=== PATIENT | male | born 1985 | race African-American/Black ===

== ENCOUNTER 2024-06-14 17:59 | Emergency (ER) | payer OTHER, SELFPAY ==
--- NOTE | ~2024-06-14 | CT_ITS ---
EXAMINATION: CT abdomen pelvis w con DATE: 06/14/2024 19:45 INDICATION: Abdominal pain TECHNIQUE: Computed tomography (CT) of the abdomen and pelvis was performed with 100 CC Omnipaque 350 intravenous contrast. Automated exposure control and iterative reconstruction technique were employe d. Exam dose: 628.66 mGy-cm total exam DLP. COMPARISON: None. FINDINGS: The lung bases are clear. Normal heart size. No pericardial or pleural effusion. The gallbladder is contracted. No pericholecystic fluid or gallbladder wall thickening. The liver, spleen, pancreas, and adrenal glands and kidneys are unremarkable except for a small nonob structing lower pole right renal calculus. No ureteral calculus or hydroureteronephrosis. There is mild fat stranding adjacent to the gallbladder fundus and hepatic flexure of the colon with suggestion of colonic diverticula. Mild uncomplicated diverticulitis is suggested at the hepatic flex ure. Differential diagnosis includes epiploic appendagitis or less likely acute cholecystitis. Normal appendix. No bowel obstruction, bowel wall thickening, pneumatosis or intraperitoneal free air is detected. Normal caliber of the abdominal aorta. No intraperitoneal or retroperitoneal or pelvic mass lesion or adenopathy or ascites. Prostate calcifications, mild prostate enlargement. The urinary bladder is unremarkable. Very small fat-containing umbilical hernia. Prominent anterior spurring at the upper aspect of the sacroiliac joints. No suspicious osteolytic or osteoblastic lesions. IMPRESSION: Mild focal inflammatory change in the right upper quadrant adjacent to the hepatic flexu re of the colon where there appears to be minimal diverticulosis. Consider mild uncomplicated colonic diverticulitis. Differential diagnosis includes epiploic appendagitis, less likely cholecystitis. Co nsider gallbladder ultrasound correlation. Nonobstructing small lower pole right renal calculus Normal appendix Reviewed, dictated and finalized at [facility] Reviewed, dictated and finalized at [facility] E QUALITY IMPRESSION: Mild focal inflammatory change in the right upper quadrant adjacen t to the hepatic flexure of the colon where there appears to be minimal diverti culosis. Consider mild uncomplicated colonic diverticulitis. Differential diagn osis includes epiploic appendagitis, less likely cholecystitis. Consider gallbl adder ultrasound correlation. Nonobstructing small lower pole right renal calculus Normal appendix
[2024-06-14 18:23] VITALS: BP 130/79; PULSE 79; RESP 15; O2SAT 100
[2024-06-14 18:30] LABS: Basophils Percent Auto 0.8 % (0.2-1.2); Eosinophils Percent Auto 0.4 % (0-4.4); Hematocrit 43.4 % (42.0-52.0); Hemoglobin 14.8 g/dL (14.0-18.0); Immature Granulocyte Absolute 0.01 K/mm3 (0.00-0.031); Immature Granulocyte Percent A 0.2 % (0-0.5); Lymphocytes Absolute Auto 2.04 K/mm3 (0.9-3.2); Lymphocytes Percent Auto 40.2 % (18.3-44.2); Mean Corpuscular HGB Conc 34.1 g/dl (32-36); Mean Corpuscular Hemoglobin 30.6 pg (26-34); Mean Corpuscular Volume 89.7 fl (80-100); Mean Platelet Volume 9.3 fl (7.4-10.4); Monocytes Absolute Auto 0.5 K/mm3 (0.1-0.6); Monocytes Percent Auto 8.9 % (2.6-8.5); Neutrophils Absolute Auto 2.5 K/mm3 (1.3-6.7); Neutrophils Percent Auto 49.5 % (45.5-73.1); Platelet Count Result 209 k/mm3 (150-375); Red Blood Count 4.84 M/mm3 (4.6-6.20); Red Cell Distribution Width 12.6 % (11.5-14.5); White Blood Count 5.1 K/mm3 (4.5-10.0)
[2024-06-14 18:32] LABS: Add Urine Microscopic? NO; Appearance Urine Clear (Clear); Bilirubin Urine Negative (Negative); Blood Urine Negative (Negative); Color Urine Yellow (Yellow); Glucose Urine UA Negative (Negative); Ketones Urine Negative (Negative); Leukocyte Esterase Ur Negative LEU/UL (Negative); Nitrate Urine Negative (Negative); Protein Urine Negative (Negative); Specific Grav Ur 1.023 (1.001-1.035)
[2024-06-14 18:38] LABS: Alanine Aminotransferase 18 U/L (6-50); Albumin Level 4.5 g/dL (3.5-5.1); Alkaline Phosphatase 50 U/L (38-126); Anion Gap 3 mmol/L (4-12); Aspartate Amino Transferase 38 U/L (17-59); Bilirubin,Total 1.9 mg/dL (0.2-1.3); Blood Urea Nitrogen 14 mg/dL (9-20); Calcium 9.1 mg/dL (8.4-10.2); Carbon Dioxide 33 mmol/L (22-30); Chloride 103 mmol/L (98-107); Estimated Glomerular Filt Rate > 60; Glucose 83 mg/dL (65-110); Lipase 43 U/L (23-300); Potassium 3.9 mmol/L (3.4-5.0); Sodium 139 mmol/L (137-145)
[2024-06-14 18:58] VITALS: BP 135/87; PULSE 73; RESP 19; O2SAT 100
--- NOTE | 2024-06-14 19:23 | ED_ITS ---
HPI - Abdominal Pain General Chief Complaint: Abdominal Pain Stated Complaint: dull uncomfort abd pain Time Seen by Provider: 06/14/24 18:09 Source: patient Mode of arrival: ambulatory Limitations: no limitations History of Present Illness HPI narrative: This is a 39-year-old male that presents to the emergency department for left- sided abdominal pain. Ongoing over the last couple of weeks. Reports he feels like he can feel a knot in the area. Denies fevers, vomiting, dysuria, hematuria. Related Data Allergies Allergy/AdvReac Type Severity Reaction Status Date / Time No Known Allergies Allergy Verified 06/14/24 18:24 Review of Systems 2 Review of Systems: CONSTITUTIONAL: Denies fever GASTROINTESTINAL: Reports abdominal pain. Denies nausea, vomiting, or diarrhea. GENITOURINARY: Denies dysuria or hematuria. All systems reviewed & are unremarkable except as noted in HPI and below PMFSH Social History Social History (Updated 06/14/24 @ 19:26 by Carla Brito PA-C) Substance use: never Exam 2 Narrative: GENERAL: Well-appearing, well-nourished, and in no acute distress. HEAD: Normocephalic, atraumatic. EYES: EOMI. CHEST: Clear to auscultation. No respiratory distress. No wheezes rales or rhonchi HEART: Regular rate and rhythm. No murmur heard. Normal peripheral pulses. ABDOMEN: Soft, nondistended, normal active bowel sounds. Mild tenderness to palpation throughout the left side of the abdomen, without guarding EXTREMITIES: Normal range of motion. No edema. SKIN: Warm, dry, no rash. NEURO: No focal deficits. Alert and oriented x3. PSYCH: Normal mood and affect Course Course Emergency Course: Patient updated on his workup and agrees with plan of care Vital Signs Vital signs: Vital Signs Pulse Rate 79 06/14/24 18:23 Respiratory Rate 15 06/14/24 18:23 Blood Pressure 130/79 06/14/24 18:23 Pulse Oximetry 100 06/14/24 18:23 Temperature 98.5 F 06/14/24 19:26 Pulse Rate 73 06/14/24 19:26 Respiratory Rate 14 06/14/24 19:26 Blood Pressure 138/88 06/14/24 19:26 Pulse Oximetry 100 06/14/24 19:26 MDM - Abdominal Pain MDM Narrative Medical decision making narrative: patient presents the emergency department for left-sided mid abdominal pain. He is afebrile and nontoxic appearing. His vitals are stable. Cbc without leukocytosis. Metabolic panel shows mild hyperbilirubinemia. Lipase is normal. Urine without evidence of infection. CT abdomen pelvis shows mild focal inflammatory change in the right upper quadrant adjacent to some diverticula. This is not totally correlate to the patient's area of pain. Counseled patient a clear liquid diet. I did send antibiotics to the pharmacy for any worsening pain/symptoms. Patient updated on his workup and agrees with plan of care. He is to have follow-up with primary provider. He was given warnings to return to the ER Differential Diagnosis Differential diagnosis: Likely calculus of kidney, constipation and diverticulitis Lab Data Attestation: I reviewed the patient's lab results. 06/14/24 18:19 06/14/24 18:19 Labs: Lab Results 06/14/24 Range/Units 18:19 WBC 5.1 (4.5-10.0) K/mm3 RBC 4.84 (4.6-6.20) M/mm3 Hgb 14.8 (14.0-18.0) g/dL Hct 43.4 (42.0-52.0) % MCV 89.7 (80-100) fl MCH 30.6 (26-34) pg MCHC 34.1 (32-36) g/dl RDW 12.6 (11.5-14.5) % Plt Count 209 (150-375) k/mm3 MPV 9.3 (7.4-10.4) fl Immature Gran % (Auto) 0.2 (0-0.5) % Neut % (Auto) 49.5 (45.5-73.1) % Lymph % (Auto) 40.2 (18.3-44.2) % [place] % (Auto) 8.9 H (2.6-8.5) % Eos % (Auto) 0.4 (0-4.4) % Baso % (Auto) 0.8 (0.2-1.2) % Lymph # (Auto) 2.04 (0.9-3.2) K/mm3 [place] # (Auto) 0.5 (0.1-0.6) K/mm3 Eos # (Auto) 0.0 (0-0.3) K/mm3 Baso # (Auto) 0.0 (0.0-0.1) K/mm3 Abs Immat Gran (auto) 0.01 (0.00-0.031) K/mm3 Absolute Neuts (auto) 2.5 (1.3-6.7) K/mm3 Absolute Nucleated RBC 0.000 (0.0-0.012) K/mm3 Nucleated RBC % 0.0 (0.0-0.2) % Sodium 139 (137-145) mmol/L Potassium 3.9 (3.4-5.0) mmol/L Chloride 103 (98-107) mmol/L Carbon Dioxide 33 H (22-30) mmol/L Anion Gap 3 L (4-12) mmol/L BUN 14 (9-20) mg/dL Creatinine 1.00 (0.7-1.3) mg/dL Estim Creat Clear Calc Not Reportable Estimated GFR > 60 (59 - ) Glucose 83 (65-110) mg/dL Calcium 9.1 (8.4-10.2) mg/dL Total Bilirubin 1.9 H (0.2-1.3) mg/dL AST 38 (17-59) U/L ALT 18 (6-50) U/L Alkaline Phosphatase 50 (38-126) U/L Total Protein 8.0 (6.3-8.2) g/dL Albumin 4.5 (3.5-5.1) g/dL Lipase 43 (23-300) U/L Urine Color Yellow (Yellow) Urine Appearance Clear (Clear) Urine pH 6.0 (5.0-9.0) Ur Specific [place] 1.023 (1.001-1.035) Urine Protein Negative (Negative) mg/dL Urine Glucose (UA) Negative (Negative) mg/dL Urine Ketones Negative (Negative) mg/dL Ur Blood (Man) Negative (Negative) Urine Nitrate Negative (Negative) Urine Bilirubin Negative (Negative) Urine Urobilinogen 1.0 (<2.0) mg/dL Leukocyte Esterase Rfl Negative (Negative) JOHN/UL Imaging Data Radiologist's impression: ITS Impressions Abdomen/Pelvis CT 06/14/24 19:46 IMPRESSION: Mild focal inflammatory change in the right upper quadrant adjacent to the hepatic flexure of the colon where there appears to be minimal diverticulosis. Consider mild uncomplicated colonic diverticulitis. Differential diagnosis includes epiploic appendagitis, less likely cholecystitis. Consider gallbladder ultrasound correlation. Nonobstructing small lower pole right renal calculus Normal appendix Critical Care Time Critical Care Time Critical Care Time: No Discharge Plan Discharge Clinical Impression: Abdominal pain Qualifiers: Abdominal location: left upper quadrant Qualified Code(s): R10.12 - Left upper quadrant pain Patient Disposition: Home, Self-Care Condition: Stable Instructions: Antibiotic Form, Diverticulitis (ED), Clear Liquid Diet (ED), Abdominal Pain (ED) Additional Instructions: Return to the ER if you experience fever, abdominal pain with nausea and vomiting, you are unable to keep down liquids or solids, blood in the stool, or any other symptoms that are concerning to you The radiologist saw possible diverticulitis. Although this doesn't correlate with the area of your pain, unsure if this is an incidental/ not significant finding Liquid diet the next couple of days to see if this helps your pain. Over the counter pain medication as needed. Take oral antibiotic for any worsening symptoms/abdominal pain Follow up with your primary care doctor Patient Language: Serbian Prescriptions: New amoxicillin-pot clavulanate 875-125 mg tablet 1 tablet PO Q12H 10 Days Qty: 20 0RF Follow-up/Referrals: PHYSICIAN NOT ON STAFF,NONSTAFF [Primary Care Provider] -
[2024-06-14 19:26] VITALS: BP 138/88; PULSE 73; RESP 14; TEMP 36.9; O2SAT 100
[2024-06-14 20:40] VITALS: BP 145/90; PULSE 64; RESP 18; O2SAT 100
== END 2024-06-14 20:41 | disposition home or self-care (01) ==
PROVIDERS: Student in an Organized Health Care Education/Training Program; Emergency Provider Physician Assistant
DX: R10.12 Left upper quadrant pain (principal)
CPT/HCPCS: 36415; 74177; 80053; 81003; 83690; 85025; 99284; Q9967

== ENCOUNTER 2025-02-26 22:51 | Emergency (ER) | payer OTHER, SELFPAY ==
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
--- NOTE | ~2025-02-26 | XR_ITS ---
EXAMINATION: XR chest 2V DATE: 02/27/2025 00:15 INDICATION: Right chest pain TECHNIQUE: PA and lateral views of the chest were obtained. COMPARISON: None FINDINGS: The lungs are clear with no focal airspace opacities, pulmonary edema, pleural effusion or pneumothorax. The cardiomediastinal silhouette is normal. Visualized bones and soft tissues are unremarkable. IMPRESSION: 1. Normal chest radiograph. Reviewed, dictated and finalized at location A. IMPRESSION: 1. Normal chest radiograph.
--- OUTSIDE RECORDS SUMMARY | 2025-02-26 22:53 | XMS_ITS | Clinical Summary ---
Author Organization [facility] Address [facility] [place] [address] Care Team Providers Care Sheet Rock Taper Helper Name Role Phone No, Physician Primary Care Provider [phone] Allergies No known active allergies Medications tamsulosin (FLOMAX) 0.4 mg extended release capsuleIndicati ons:Urolithiasi s Take 1 capsule (0.4 mg total) by mouth daily for 10 days 10 capsule 03/01/2020 Active ibuprofen (ADVIL,MOTRIN) 800 mg tabletIndicatio ns:Anti-inflamm atory,Pain Take 1 tablet (800 mg total) by mouth 3 (three) times a day 21 tablet 07/09/2021 Active acetaminophen (TYLENOL) 500 mg tablet Take 1-2 tablets (500-1,000 mg total) by mouth every 6 (six) hours as needed for pain 30 tablet 07/09/2021 Active Active Problems Problem Noted Date Diagnosed Date Shoulder dislocation, left, initial encounter Acute epididymitis 04/17/2019 Medical History Medical History Date Comments Depression Family History Medical History Relation Name Comments Cancer Father Cancer Mother Relation Name Status Comments Father Mother Social History Tobacco Use Types Packs/Day Years Used Date Smoking Tobacco: Never Smokeless Tobacco: Never Alcohol Use Standard Drinks/Week Comments Yes 0 (1 standard drink = 0.6 oz pur e alcohol) socailly Personal Safety Answer Date Recorded Getting School Help Needed Not on file 08/14 Sex and Gender Information Value Date Recorded Sex Assigned at Not on file Legal Sex Male 10:[address] Gender Identity Not on file Sexual Orientation Not on file 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 Not on file Not on file Not on file Obstetrics History Last Filed Vital Signs Vital Sign Reading Time Taken Comments Blood Pressure 148/94 07/09/2021 6:[address] Pulse 67 07/09/2021 6:[address] Temperature 36.3 C (97.4 F) 07/09/2021 4:[address] Respiratory Rate 18 07/09/2021 6:[address] Oxygen Saturation 99% 07/09/2021 6:[address] Inhaled Oxygen Concentration - - Weight 103.9 kg (229 lb) 07/18/2021 3:[address] Height 185.4 cm (6' 1) 07/18/2021 3:[address] Body Mass Index 30.21 07/18/2021 3:[address] Plan of Treatment Not on file Insurance [employer] OOS [employer] OOS Care Teams Sheet Rock Taper Helper Relationship Specialty Start Date End Date No, Physician PCP - General 12/02/16
--- OUTSIDE RECORDS SUMMARY | 2025-02-26 22:53 | XMS_ITS | Clinical Summary ---
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 INSPECTOR Gender Identity Not on file Sexual Orientation Not on file Last Filed Vital Signs Vital Sign Reading Time Taken Comments Blood Pressure 130/77 08/26/2021 3:23 PM [employer]BESTOS CLOTH INSPECTOR Pulse 76 08/26/2021 3:23 PM [employer]BESTOS CLOTH INSPECTOR Temperature 35.8 C (96.5 F) 08/26/2021 3:23 PM [employer]BESTOS CLOTH INSPECTOR Respiratory Rate 17 08/26/2021 3:23 PM ASBESTOS CLOTH INSPECTOR Oxygen Saturation 98% 08/26/2021 3:23 PM ASBESTOS CLOTH INSPECTOR Inhaled Oxygen Concentration - - Weight 99.8 kg (220 lb) 08/26/2021 3:23 PM [employer]BESTOS CLOTH INSPECTOR Height 185.4 cm (6' 1) 08/26/2021 3:23 PM ASBESTOS CLOTH INSPECTOR Body Mass Index 29.03 08/26/2021 3:23 PM ASBESTOS CLOTH INSPECTOR Plan of Treatment Health Maintenance Due Date Last Done Comments DTAP/TDAP/TD VACCINES (1 - Tdap) 2004 HEPATITIS B VACCINES (1 of 3 - 19+ 3-dose series) 04/24 HPV VACCINES (1 - 3-dose SCDM series) 2012 INFLUENZA VACCINE (#1) 2025 Insurance OUT OF STATE Care Teams Road Gang Supervisor Relationship Specialty Start Date End Date Cristel Blanco DO [address] [facility] [address] [place] [address] PCP - General 08/26/21
--- OUTSIDE RECORDS SUMMARY | 2025-02-26 22:53 | XMS_ITS | Clinical Summary ---
Author Organization [facility] [employer] Address [address] [place] [address] Care Team Providers Care Electrocardiograph Technician Name Role Phone Unavailable Primary Care Provider Unavailabl e Source Comments [facility],non-owned Affiliates and Associated Physician Practices is amultiple site organization consisting of ambulatory clinics and hospital sitesin [place], [place] and [place]. This disclosure is being madepursuant to the Care Everywhere program and may not contain all information available regarding this patient. Last updated 18.[facility] [employer] Allergies No known active allergies Immunizations Immunization Administration Dates Next Due HEP A VACCINE, ADULT 10/06/2016 Social History Tobacco Use Types Packs/Day Years Used Date Smoking Tobacco: Never Assessed Sex and Gender Information Value Date Recorded Sex Assigned at Not on file Legal Sex Male 2:16 PM CDT Gender Identity Male Sexual Orientation Not on file Plan of Treatment Health Maintenance Due Date Last Done Comments HIV SCREENING 2000 HEPATITIS C SCREENING 05/03/2003 DTAP/TDAP/TD VACCINES (1 - Tdap) 2004 HEPATITIS B VACCINE (1 of 3 - 19+ 3-dose series) 2004 HPV VACCINE (1 - 3-dose SCDM series) 2012 HEPATITIS A VACCINE (2 of 2 - Risk 2-dose series) 04/07/2017 10/06/2016 DEPRESSION SCREENING 06/24/2024 COVID-19 VACCINE (1 - 2023-2 5 season) 2025 INFLUENZA VACCINE (#1) 2025 ZOSTER VACCINE (1 of 2) 2035 HIB VACCINE Aged Out No longer eligi ble based on patient's age to complete this topic MENINGOCOCCAL (Group B) VACC INE SHARED DECISION-MAKING Aged Out No longer eligibl e based on patient's age to complete this topic MENINGOCOCCAL GROUPS A/C/Y/W VACCINE Aged Out No longer eligible b ased on patient's age to complete this topic PNEUMOCOCCAL VACCINE Aged Out No long er eligible based on patient's age to complete this topic Insurance [facility]
[2025-02-26 23:09] VITALS: BP 149/78; PULSE 81; RESP 23; TEMP 36.6; O2SAT 97
--- NOTE | 2025-02-26 23:35 | ECG_ITS ---
Test Date: 2025-02-26 23:49:09 Measurements Intervals [place] Rate: 64 P: 52 NV: 183 QRS: 61 QRSD: 106 T: 24 QT: 387 QTc: 401 Interpretive Statements SINUS RHYTHM No previous ECG available for comparison Electronically Signed On 02-27-2025 10:52:11 CDT by Mark Santana M.D.
--- NOTE | 2025-02-26 23:37 | ED_ITS ---
HPI - Chest Pain General Chief Complaint: Dizziness Stated Complaint: dizzy Time Seen by Provider: 02/26/25 22:52 History of Present Illness HPI narrative: Patient is a 39-year-old male who presents to the ER with complaints of chest pain, anxiety, palpitations, dizziness, and fatigue. He reports his symptoms started approximately 1 month ago. Patient denies any shortness a breath, recent fevers, lower extremity swelling. He endorses a ?stressful situation, which he believes have contributed to his symptoms. Patient endorses a history of depression, mild cardiac valve regurgitation, and a dislocated shoulder. He reports he had an EKG done in December and it was normal. Related Data Allergies Allergy/AdvReac Type Severity Reaction Status Date / Time No Known Allergies Allergy Verified 06/14/24 18:24 Review of Systems 2 Review of Systems: All systems reviewed & are unremarkable except as noted in HPI and below PMFSH Social History Social History Substance use: never Exam 2 Narrative: GENERAL: Well appearing, well-nourished, non-toxic, in no acute distress. HEAD: Normocephalic, atraumatic. NECK: Supple. No adenopathy, no masses. RESPIRATORY: Airway patent, respirations nonlabored. Clear to auscultation bilaterally, no rales, rhonchi, wheezing. CARDIOVASCULAR: Regular rate and rhythm without murmurs, rubs, or gallops. Peripheral pulses 2+ and equal bilaterally. ABDOMINAL: Soft, nontender, nondistended, no hepatosplenomegaly. Normoactive BS. MUSCULOSKELETAL: Moves all extremities. Strength/ROM intact without gross deformities. SKIN: Warm, dry, normal color. No rashes. NEURO: A&O X3. Speech clear. Cranial nerves II-XII intact. No ataxic movements. PSYCHIATRIC: Appropriate mood and affect. Normal interaction. Course Vital Signs Vital signs: Vital Signs Temperature 36.6 C 02/26/25 23:09 Pulse Rate 81 02/26/25 23:09 Respiratory Rate 23 H 02/26/25 23:09 Blood Pressure 149/78 H 02/26/25 23:09 Pulse Oximetry 97 02/26/25 23:09 Oxygen Delivery Room Air 02/26/25 23:09 Temperature 36.6 C 02/26/25 23:09 Pulse Rate 64 02/27/25 00:15 Respiratory Rate 16 02/27/25 00:15 Blood Pressure 148/96 H 02/27/25 00:15 Pulse Oximetry 100 02/27/25 00:15 Oxygen Delivery Room Air 02/26/25 23:09 MDM - Chest Pain MDM Narrative Medical decision making narrative: Patient is a 39-year-old male who presents to the ER with complaints of chest pain, anxiety, palpitations, dizziness, and fatigue. He reports his symptoms started approximately 1 month ago. Patient denies any shortness a breath, recent fevers, lower extremity swelling. He endorses a ?stressful situation, which he believes have contributed to his symptoms. Patient endorses a history of depression, mild cardiac valve regurgitation, and a dislocated shoulder. He reports he had an EKG done in December and it was normal. Pain is not reproducible. Labs Ordered: CBC, CMP, TSH, COVID/flu/RSV swab, UA, UDS, troponin, D-dimer Imaging Ordered: Chest x-ray Medications Ordered: None necessary Results: Patient's blood work results all indicated no acute abnormalities. His chest x-ray was negative for any acute abnormalities. Diagnosis: Anxiety, atypical chest pain, costochondritis Risks: HEART score: low risk HEART Score for Major Cardiac Events from [email or web address] on 02/27/2025 All calculations should be rechecked by clinician prior to use RESULT SUMMARY: 1 points Low Score (0-3 points) Risk of MACE of 0.9-1.7%. INPUTS: History ?> 1 = Moderately suspicious EKG ?> 0 = Normal Age ?> 0 = <45 Risk factors ?> 0 = No known risk factors Initial troponin ?> 0 = <Normal limit Patient Education/Shared MDM: Results of lab work and imaging shared with patient. His blood work results are reassuring and his heart score indicates he is low risk, so it is deemed safe for patient to be discharged home. Patient strongly advised to maintain hydration status upon discharge and follow-up with their PCP as soon as possible. He will be discharged home with a prescription for Hydroxyzine. Strict return precautions provided. Patient verbalized understanding and is in agreement with plan. Vital signs stable at time of discharge. All questions answered. Differential Diagnosis Differential diagnosis: Likely atypical chest pain, costochondritis and other (muscle strain, anxiety) Lab Data Attestation: I reviewed the patient's lab results. 02/26/25 23:47 02/26/25 23:47 Labs: Lab Results 02/26/25 02/27/25 02/27/25 Range/Units 23:47 00:01 00:03 WBC 7.4 (4.5-10.0) K/mm3 RBC 4.79 (4.6-6.20) M/mm3 Hgb 14.5 (14.0-18.0) g/dL Hct 42.8 (42.0-52.0) % MCV 89.4 (80-100) fl MCH 30.3 (26-34) pg MCHC 33.9 (32-36) g/dl RDW 12.7 (11.5-14.5) % Plt Count 229 (150-375) k/mm3 MPV 9.0 (7.4-10.4) fl Immature Gran % (Auto) 0.1 (0-0.5) % Neut % (Auto) 61.6 (45.5-73.1) % Lymph % (Auto) 28.4 (18.3-44.2) % [place] % (Auto) 8.4 (2.6-8.5) % Eos % (Auto) 1.0 (0-4.4) % Baso % (Auto) 0.5 (0.2-1.2) % Lymph # (Auto) 2.09 (0.9-3.2) K/mm3 [place] # (Auto) 0.6 (0.1-0.6) K/mm3 Eos # (Auto) 0.1 (0-0.3) K/mm3 Baso # (Auto) 0.0 (0.0-0.1) K/mm3 Abs Immat Gran (auto) 0.01 (0.00-0.031) K/mm3 Absolute Neuts (auto) 4.5 (1.3-6.7) K/mm3 Absolute Nucleated RBC 0.000 (0.0-0.012) K/mm3 Nucleated RBC % 0.0 (0.0-0.2) % D-Dimer < 0.27 (<0.48) ug/mL Sodium 138 (137-145) mmol/L Potassium 4.2 (3.4-5.0) mmol/L Chloride 102 (98-107) mmol/L Carbon Dioxide 29 (22-30) mmol/L Anion Gap 7 (4-12) mmol/L BUN 17 (9-20) mg/dL Creatinine 1.24 (0.7-1.3) mg/dL Estim Creat Clear Calc 92 ml/min Estimated GFR > 60 (59 - ) Glucose 91 (65-110) mg/dL Calcium 9.1 (8.4-10.2) mg/dL Total Bilirubin 1.0 (0.2-1.3) mg/dL AST 45 (17-59) U/L ALT 19 (6-50) U/L Alkaline Phosphatase 52 (38-126) U/L Troponin I < 0.012 (0.000-0.034) ng/mL Total Protein 8.0 (6.3-8.2) g/dL Albumin 4.4 (3.5-5.1) g/dL Lipase 45 (23-300) U/L TSH (Reflex) 3.050 (0.465-4.68) uIU/mL Urine Color Yellow (Yellow) Urine Appearance Clear (Clear) Urine pH 7.5 (5.0-9.0) Ur Specific [place] 1.020 (1.001-1.035) Urine Protein Negative (Negative) mg/dL Urine Glucose (UA) Negative (Negative) mg/dL Urine Ketones Negative (Negative) mg/dL Ur Blood (Man) Negative (Negative) Urine Nitrate Negative (Negative) Urine Bilirubin Negative (Negative) Urine Urobilinogen 1.0 (<2.0) mg/dL Leukocyte Esterase Rfl Negative (Negative) JOHN/UL Urine Opiates Screen Negative (Negative) Urine Methadone Screen Negative (Negative) Ur Barbiturates Screen Negative (Negative) Ur Phencyclidine Scrn Negative (Negative) Ur Amphetamine Screen Negative (Negative) U Benzodiazepines Scrn Negative (Negative) Urine Cocaine Screen Negative (Negative) U Cannabinoids Screen Negative (Negative) Influenza A (RT-PCR) Negative (Negative) Influenza B (RT-PCR) Negative (Negative) RSV (RT-PCR) Negative (Negative) SARS-CoV-2 RNA (RT-PCR) Negative (Negative) Imaging Data Attestation: I personally reviewed and interpreted this imaging study as follows: My impression: No acute cardiopulmonary abnormalities noted on x-ray. Discharge Plan Discharge Clinical Impression: Atypical chest pain, Anxiety, Acute costochondritis Patient Disposition: Home Condition: Stable Instructions: Antibiotic Form Additional Instructions: Please return to the ER with any worsening symptoms. Follow-up with primary care provider as needed. Take all medications as prescribed, including regularly scheduled medications. You may take hydroxyzine as needed for anxiety. Patient Language: Estonian Prescriptions: New hydroxyzine HCl 25 mg tablet 25 mg PO TID PRN (Reason: anxiety) Qty: 20 0RF No Action amoxicillin-pot clavulanate 875-125 mg tablet 1 tablet PO Q12H 10 Days Qty: 20 0RF Follow-up/Referrals: PHYSICIAN NOT ON STAFF,NONSTAFF [Primary Care Provider] Stand Alone Forms: Work/School Release IP Time of Disposition: 01:18
[2025-02-26 23:52] LABS: Hematocrit 42.8 % (42.0-52.0); Hemoglobin 14.5 g/dL (14.0-18.0); Immature Granulocyte Percent A 0.1 % (0-0.5); Lymphocytes Absolute Auto 2.09 K/mm3 (0.9-3.2); Mean Corpuscular HGB Conc 33.9 g/dl (32-36); Mean Corpuscular Hemoglobin 30.3 pg (26-34); Mean Corpuscular Volume 89.4 fl (80-100); Nucleated Red Blood Cells Absolute Auto 0.000 K/mm3 (0.0-0.012); Nucleated Red Blood Cells Perc 0.0 % (0.0-0.2); Platelet Count Result 229 k/mm3 (150-375); Red Blood Count 4.79 M/mm3 (4.6-6.20); White Blood Count 7.4 K/mm3 (4.5-10.0)
[2025-02-27 00:10] LABS: Add Urine Microscopic? NO; Appearance Urine Clear (Clear); Glucose Urine UA Negative (Negative); Leukocyte Esterase Ur Negative LEU/UL (Negative); Nitrate Urine Negative (Negative); Specific Grav Ur 1.020 (1.001-1.035)
[2025-02-27 00:11] LABS: Alanine Aminotransferase 19 U/L (6-50); Albumin Level 4.4 g/dL (3.5-5.1); Alkaline Phosphatase 52 U/L (38-126); Anion Gap 7 mmol/L (4-12); Aspartate Amino Transferase 45 U/L (17-59); Bilirubin,Total 1.0 mg/dL (0.2-1.3); Blood Urea Nitrogen 17 mg/dL (9-20); Calcium 9.1 mg/dL (8.4-10.2); Carbon Dioxide 29 mmol/L (22-30); Chloride 102 mmol/L (98-107); Estimated CRCL calculation 92 ml/min; Estimated Glomerular Filt Rate > 60; Glucose 91 mg/dL (65-110); Lipase 45 U/L (23-300); Potassium 4.2 mmol/L (3.4-5.0); Sodium 138 mmol/L (137-145); Total Protein 8.0 g/dL (6.3-8.2)
[2025-02-27 00:15] VITALS: BP 148/96; PULSE 64; RESP 16; O2SAT 100
[2025-02-27 00:16] LABS: Troponin I < 0.012 ng/mL (0.000-0.034)
[2025-02-27 00:28] LABS: Influenza A QL RT-PCR Negative (Negative); Influenza B QL RT-PCR Negative (Negative); RSV RNA, RT-PCR Negative (Negative); SARS-CoV-2 RNA PCR Negative (Negative)
[2025-02-27 00:38] LABS: Thyroid Stimulating Hormone Reflex 3.050 uIU/mL (0.465-4.68)
[2025-02-27 01:04] LABS: Cannabinoid Screen Urine Negative (Negative)
[2025-02-27 01:29] VITALS: BP 151/88; PULSE 70; RESP 15; O2SAT 99
== END 2025-02-27 01:30 | disposition home or self-care (01) ==
PROVIDERS: Emergency Provider Registered Nurse
DX: R07.89 Other chest pain (principal); M94.0 Chondrocostal junction syndrome [Tietze]; F41.9 Anxiety disorder, unspecified; Z20.822 Contact with and (suspected) exposure to COVID-19
CPT/HCPCS: 36415; 71046; 80053; 80307; 81003; 83690; 84443; 84484; 85025; 85380; 87637; 93005; 99284